=== PATIENT | female | born 1970 | race African-American/Black ===

== ENCOUNTER 2020-10-21 08:39 | Emergency (ER) | payer OTHER, SELFPAY ==
--- NOTE | ~2020-10-21 | XR_ITS ---
EXAMINATION: XR hand LT min 3V DATE: 10/21/2020 09:10 INDICATION: Left thumb and hand pain post injury TECHNIQUE: Posteroanterior, oblique and lateral views of the left hand were obtained. COMPARISON: None. FINDINGS: Bone alignment is normal. There is soft tissue swelling about the left first metacarpophalangeal join t. There is a tiny calcific density with relatively smooth margins along the radial side of the first metacarpophalangeal joint line positioned closer to the base of the proximal phalanx. Mild periartic ular hypertrophic change with associated small cortical erosion with sclerotic margins at the medial aspect of the head of the first metacarpal. Could not exclude a tiny acute avulsion fracture of the m etacarpal footplate of the radial collateral ligament however appearance is more suggestive of sequel a of chronic injury either of an avulsion fracture or ligament sprain with secondary heterotopic ossi fication and erosive change. Differential would include erosion in the setting of gout. No other lesi ons suspicious for fracture. Joint spaces are normal. IMPRESSION: 1. Soft tissue swelling about the left first metacarpophalangeal joint with findings suspicious for i njury either acute or chronic of the radial collateral ligament as detailed above. Reviewed, dictated and finalized at location B. TEACHER IMPRESSION: 1. Soft tissue swelling about the left first metacarpophalangeal joint with fin dings suspicious for injury either acute or chronic of the radial collateral li gament as detailed above.
[2020-10-21 08:52] VITALS: BP 159/79; PULSE 62; RESP 16; TEMP 35.7; O2SAT 100
--- NOTE | 2020-10-21 09:29 | ED.UPPEXIN ---
HPI - Extremity Injury (Upper) General Chief Complaint: Extremity Injury, Upper <MARCELA Her Last Filed: 10/21/20 09:41> Stated Complaint: left thumb injury <MARCELA Her Last Filed: 10/21/20 09:41> Time Seen by Provider: 10/21/20 09:06 <MARCELA Her Last Filed: 10/21/20 09:41> Source: patient <MARCELA Her Last Filed: 10/21/20 09:41> Mode of arrival: ambulatory <MARCELA Her Last Filed: 10/21/20 09:41> Limitations: no limitations <MARCELA Her Last Filed: 10/21/20 09:41> History of Present Illness HPI narrative: This is a 50 year old ebvvy-ihpw-upxgieam female that presents to the ER for left first finger injury sustained 2 days ago. Reports she had to help a resident up off of the floor into a wheelchair. Reports she noted after that that she had some swelling and pain in the left first finger. Reports decreased range of motion due to pain. Denies numbness. <MARCELA Her Last Filed: 10/21/20 09:41> Related Data Home Medications: Home Medications Medication Instructions Recorded Confirmed No Home Medications 10/21/20 10/21/20 <MARCELA Her Last Filed: 10/21/20 09:41> Allergies/Adverse Reactions: Allergies Allergy/AdvReac Type Severity Reaction Status Date / Time No Known Allergies Allergy Other Uncoded 10/21/20 08:59 <MARCELA Her Last Filed: 10/21/20 09:41> Review of Systems Review of Systems: Narrative: CONSTITUTIONAL: Denies fever MUSCULOSKELETAL: Reports joint pain, and myalgia. NEUROLOGIC: Denies numbness <MARCELA Her Last Filed: 10/21/20 09:41> All systems reviewed & are unremarkable except as noted in HPI and below <MARCELA Her Last Filed: 10/21/20 09:41> PMFSH Family History Family History: Family History (Updated 04/22/18 @ 11:20 by DOCTOR UNKNOWN) Mother Patient's mother is <MARCELA Her Last Filed: 10/21/20 09:41> Social History Social History: Social History Smoking status: Never smoker Alcohol intake: never <MARCELA Her Last Filed: 10/21/20 09:41> Exam Narrative: Exam Narrative: GENERAL: Well-appearing, well-nourished, and in no acute distress. HEAD: Normocephalic, atraumatic. EYES: EOMI. EXTREMITIES: Decreased active ROM in the left first finger due to pain. Mild edema in the area of the left first MCP joint, patient tender to palpation. Normal radial pulses. Normal sensation SKIN: Warm, dry, no rash. NEURO: No focal deficits. Alert and oriented x3. PSYCH: Normal mood and affect <MARCELA Her Last Filed: 10/21/20 09:41> Course Consultations Consultation #1: Spoke with Dr. Mckinnon about patient work-up. Patient will be placed in a long metal foam finger splint and is to follow-up in clinic <Maria Teresa Sparks PA-C - Last Filed: 10/21/20 09:41> Date: 10/21/20 <MARCELA Her Last Filed: 10/21/20 09:41> Time: 09:38 <MARCELA Her Last Filed: 10/21/20 09:41> Vital Signs Vital signs: Vital Signs Temperature 96.3 F L 10/21/20 08:52 Pulse Rate 62 10/21/20 08:52 Respiratory Rate 16 10/21/20 08:52 Blood Pressure 159/79 H 10/21/20 08:52 Pulse Oximetry 100 10/21/20 08:52 Temperature 96.3 F L 10/21/20 08:52 Pulse Rate 62 10/21/20 08:52 Respiratory Rate 16 10/21/20 08:52 Blood Pressure 159/79 H 10/21/20 08:52 Pulse Oximetry 100 10/21/20 08:52 <MARCELA Her Last Filed: 10/21/20 09:41> Vital Signs Temperature 96.3 F L 10/21/20 08:52 Pulse Rate 62 10/21/20 08:52 Respiratory Rate 16 10/21/20 08:52 Blood Pressure 159/79 H 10/21/20 08:52 Pulse Oximetry 100 10/21/20 08:52 Temperature 96.3 F L 10/21/20 08:52 Pulse Rate 62 10/21/20 08:52 Respiratory Rate 16 10/21/20 08:52 Blood Pressure 159/79 H 10/21/20 08:52
[2020-10-21] MEDS: IBUPROFEN 600 MG TABLET PO (10:14)
== END 2020-10-21 10:20 | disposition home or self-care (01) ==
PROVIDERS: Emergency Provider General Practice; PCP Emergency Medicine
DX: S63.642A Sprain of metacarpophalangeal joint of left thumb, initial encounter (principal); X50.0XXA Overexertion from strenuous movement or load, initial encounter; Y93.F2 Activity, caregiving, lifting
CPT/HCPCS: 29130; 73130; 99283; A9270

== ENCOUNTER 2020-12-25 13:30 | Outpatient (RCR) | payer OTHER, SELFPAY ==
--- NOTE | 2020-11-13 14:34 | OTOPEVAL ---
OCCUPATIONAL THERAPY INITIAL EVALUATION 11/13/20 Roseanne is a 50 year-old, right handed female who sustained a left thumb MCP radial collateral ligament strain ~3.5 weeks ago. She continues to have a moderate amount of pain with use and with ligament stress indicating need for further time immobilized. A short opponens splint was fitted for the patient to be positioned in palmar abduction with the IP free and with the MCP joint immobilized. She understands to wear this when working and using her hand. We will continue to monitor this weekly with the goal of discharging the splint by week 6 post injury (11/30/20). Will plan to see the patient 1x/week for 4 weeks for use of modalities for pain and stiffness and ROM. Thank you for referring Roseanne Roque to [facility] [place].? The patient is scheduled to be seen for therapy? 1x/week for 4 weeks. Please review, sign, date and return this plan of care MITCHELL. I agree with and certify that the following plan of care is medically necessary. Referring Physician Date Referring Provider: Oliver Mckinnon MD *OT Outpatient Evaluation Start: 11/13/20 13:08 Freq: Status: Active Protocol: Document 11/13/20 13:08 BRIAN (Rec: 11/13/20 14:32 BRIAN [email or web address]) Therapy Assessment Status Assessment Status Assessment Status Evaluation Outpatient Past Medical History Past Medical History Source of Past Medical History Recalled from Previous Visit, Confirmed with Patient/Family Neurological History Hx Neurological Disorders No Significant History Cardiovascular History Hx Cardiac Disorders No Significant History Respiratory History Hx Respiratory Disorders No Significant History Gastrointestinal History Hx Gastrointestinal Disorders No Significant History Genitourinary History Hx Genitourinary Disorders No Significant History Musculoskeletal History Hx Musculoskeletal Disorders No Significant History Hematological History Hx Hematological Disorders No Significant History Endocrine History Hx Endocrine Disorders No Significant History HEENT History Hx Glaucoma Yes: NONCOMPLIANT WITH MED Integumentary History Hx Skin Disorders No Significant History Reproductive History Hx Reproductive Disorders No Significant History Psychosocial History Hx Psychiatric Disorders No Significant History Pain History History of Any Previous or Ongoing No Significant History Instance of Pain Anesthesia History Hx Anesthesia Reactions No Significant History Evaluation Information Problem Diagnosis Sprain left thumb MP joint radial collateral ligament sprain Onset 10/19/20 Subjective Information Patient states she has a thumb Query Text:As Reported By Patient/ immobilizer that covers the Family MP and IP joints of the thumb. She states she had not been
--- NOTE | 2020-12-11 13:20 | OTOPEVAL ---
OCCUPATIONAL THERAPY RE-EVALUATION REPORT 12/11/20 Patient presents today for re-evaluation following 4 weeks of OT. Today she has no pain at rest and no pain with active/passive ROM. Reports increased pain to 1-2/10 with gross gripping and pinching tasks. Due to residual pain, it is recommended that she continue to limit strenuous gripping, lifting, and pinching with the left hand x2 additional weeks. Will plan to reassess in 2 weeks to initiate director cloud transformation/pinch strengthening as long as patient's pain has subsided in the radial aspect of the MCP. Thank you for referring Roseanne Roque to [facility].? The patient is scheduled to be seen for therapy? 0-1x/week for 2 weeks. Please review, sign, date and return this plan of care MITCHELL. I agree with and certify that the following plan of care is medically necessary. Referring Physician Date Referring Provider: Oliver Mckinnon MD *OT Outpatient Evaluation Start: 11/13/20 13:08 Evaluation Information Problem Diagnosis Sprain left thumb MP joint radial collateral ligament sprain Onset 10/19/20 Additional Evaluation Detail Patient is 8 weeks s/p radial collateral ligament sprain. She had been wearing a hand- based thumb spica x3 weeks and prior to that she intermittently wore a long thumb spica that also immobilized the IP - questionable compliance with wear time as this splint she said was too uncomfortable. At this time she continues to have pain with gross gripping and pinching tasks that require any resistance/force. It is recommended that she continue to be on light duty and work and continue to not put any strenuous force through the thumb for an additional 2 weeks. Subjective Information Patient states since beginning Query Text:As Reported By Patient/ therapy 4 weeks ago the Family patient has significantly less pain in the left thumb. At the start of care she had 5/10 sharp pain with ROM and today she has 0/10 pain with ROM. Only reports pain with any gripping/pinching and this pain only reaches 1/10. Pain Assessment Timing of Pain Assessment Timing of Pain Assessment Re-assessment Pain Scale Pain Scal
--- NOTE | 2020-12-25 14:05 | OTOPEVAL ---
OCCUPATIONAL THERAPY RE-EVALUATION AND DISCHARGE REPORT 12/25/20 Patient presents today for her final therapy re-evaluation 10 weeks s/p left thumb radial collateral ligament injury. 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 She has been instructed in barge master/pinch strengthening HEP and is ready for discharge. Recommended that she is able to return to work without restrictions. D/C today with goals met. Thank you for referring Roseanne Roque to [facility].?Please review, sign, date and return this D/C Note MITCHELL. I agree with and certify that the following plan of care is medically necessary. Referring Physician Date Referring Provider: Oliver Mckinnon MD *OT Outpatient Evaluation Therapy Assessment Status Assessment Status Assessment Status Re-evaluation Evaluation Information Problem Diagnosis Sprain left thumb MP joint radial collateral ligament sprain Onset 10/19/20 Additional Evaluation Detail Patient is 10 weeks s/p radial collateral ligament sprain At this time she no longer has pain with gripping and pinching tasks. Subjective Information Patient states she has Query Text:As Reported By Patient/ returned to normal functional Family and pain-free use of the left hand. At the start of care she had 5/10 sharp pain with ROM and today she has 0/10 pain with ROM and with barge master/ pinch strength assessments. Pain Assessment Timing of Pain Assessment Timing of Pain Assessment Assessment Pain Scale Pain Scale Used Numeric (1 - 10) Self Report Pain Assessment Left Thumb(s) Reported Pain Level 0 Lowest Pain Intensity 0 Greatest Pain Intensity 0 Pain Score Pain Score 0: Self Report Upper Extremity Range of Motion Thumb Range of Motion Left Thumb MCP Flexion - Active 50 Thumb IP Flexion - Active 85 Thumb CMC Radial Abduction - Active 55 Thumb CMC Palmar Abduction - Active 50 Thumb Range of Motion Comments AROM returned to normal limits . MCP flexion improved from 30 *, IP flexion improved from 60 *, and opposition improved from having a 2cm gap. No pain with active ROM. Hand Manager Non Profit/Pinch Strength Assessment Hand Left Manager Non Profit Strength (lbs) 49.33 Lateral Pinch Strength (lbs) 8.66 Palmar Pinch Strength (lbs) 4 Hand Manager Non Profit/Pinch Strength Comments No pain with barge master/pinch testing.
== END 2020-12-27 10:42 | disposition home or self-care (01) ==
LOC: ANHOT 13:30
PROVIDERS: PCP Emergency Medicine; Visit Provider Plastic Surgery
DX: S63.682D Other sprain of left thumb, subsequent encounter (principal)
CPT/HCPCS: 97018; 97110; 97140; 97165; 97763; L3919

== ENCOUNTER 2021-01-08 09:34 | Outpatient (CLI) | payer OTHER, SELFPAY ==
[2021-01-08 09:56] LABS: Basophils Percent Auto 0.4 % (0.2-1.2); Eosinophils Absolute Auto 0.1 K/mm3 (0-0.3); Eosinophils Percent Auto 1.4 % (0-4.4); Hematocrit 38.8 % (37.0-47.0); Hemoglobin 12.6 g/dL (12.0-15.0); Immature Granulocyte Absolute 0.01 K/mm3 (0.00-0.031); Immature Granulocyte Percent A 0.2 % (0-0.5); Lymphocytes Absolute Auto 2.56 K/mm3 (0.9-3.2); Lymphocytes Percent Auto 51.9 % (18.3-44.2); Mean Corpuscular HGB Conc 32.5 g/dl (32-36); Mean Corpuscular Hemoglobin 31.6 pg (26-34); Mean Corpuscular Volume 97.2 fl (80-100); Mean Platelet Volume 9.2 fl (7.4-10.4); Monocytes Absolute Auto 0.4 K/mm3 (0.1-0.6); Monocytes Percent Auto 8.5 % (2.6-8.5); Neutrophils Absolute Auto 1.9 K/mm3 (1.3-6.7); Neutrophils Percent Auto 37.6 % (45.5-73.1); Platelet Count Result 198 k/mm3 (150-375); Red Blood Count 3.99 M/mm3 (4.2-5.4); Red Cell Distribution Width 13.9 % (11.5-14.5); White Blood Count 4.9 K/mm3 (4.5-10.0)
[2021-01-10 15:22] LABS: Hepatitis B DNA PCR <1.00 Log IU/mL; Hepatitis B DNA PCR <10 IU/mL
[2021-01-11 20:51] LABS: NIL 0.04 IU/mL; Quantiferon TB Plus, 1T NEGATIVE (NEGATIVE); TB1-NIL <0.00 IU/mL; TB2-NIL <0.00 IU/mL
== END 2021-01-08 09:35 | disposition home or self-care (01) ==
PROVIDERS: PCP Emergency Medicine; Visit Provider Emergency Medicine
DX: Z11.1 Encounter for screening for respiratory tuberculosis (principal); Z11.59 Encounter for screening for other viral diseases; R53.83 Other fatigue
CPT/HCPCS: 36415; 84443; 85025; 86480; 87517

== ENCOUNTER 2021-01-25 13:13 | Outpatient (CLI) | payer OTHER, SELFPAY ==
[2021-01-25 15:23] LABS: Hepatitis B Surface Anti Res Positive
== END 2021-01-25 13:14 | disposition home or self-care (01) ==
PROVIDERS: PCP Emergency Medicine; Visit Provider Emergency Medicine
DX: Z11.59 Encounter for screening for other viral diseases (principal)
CPT/HCPCS: 36415; 86706

== ENCOUNTER 2021-03-29 21:37 | Emergency (ER) | payer OTHER, SELFPAY ==
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
[2021-03-29 21:54] VITALS: BP 136/79; PULSE 64; RESP 18; TEMP 36.9; O2SAT 100
[2021-03-30 00:38] VITALS: BP 128/84; PULSE 61; RESP 18; TEMP 36.8; O2SAT 100
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
--- NOTE | 2021-03-30 01:31 | ECG_ITS ---
Measurements Intervals [place] Rate: 45 P: 65 [place]: 220 QRS: 74 QRSD: 91 T: 50 QT: 457 QTc: 398 Interpretive Statements SINUS BRADYCARDIA WITH FIRST DEGREE AV BLOCK VOLTAGE CRITERIA FOR LVH BASELINE ARTIFACT- I, II, III ABNORMAL ECG Electronically Signed On 03-30-2021 7:06:01 CDT by Kedar Persaud D.O.
[2021-03-30] MEDS: ACETAMINOPHEN 500 MG TABLET 1000 MG PO (01:41)
--- NOTE | 2021-03-30 01:46 | PC.NURSE ---
Patient taken to xray.
[2021-03-30 03:46] VITALS: BP 121/66; PULSE 66; RESP 18; TEMP 36.3; O2SAT 100
== END 2021-03-30 03:48 | disposition home or self-care (01) ==
PROVIDERS: Emergency Provider Emergency Medicine; PCP Emergency Medicine
DX: R07.89 Other chest pain (principal); R00.1 Bradycardia, unspecified; R94.31 Abnormal electrocardiogram [ECG] [EKG]; V47.0XXA Car driver injured in collision with fixed or stationary object in nontraffic accident, initial encounter
CPT/HCPCS: 71046; 93005; 99283; A9270

== ENCOUNTER → 2021-05-17 00:04 | Outpatient (CLI) | payer OTHER, SELFPAY ==
[2021-05-17 18:04] LABS: SARS-CoV-2 RNA PCR Negative
== END ==
PROVIDERS: PCP Emergency Medicine; Visit Provider Emergency Medicine
DX: R68.89 Other general symptoms and signs (principal); Z20.822 Contact with and (suspected) exposure to COVID-19
CPT/HCPCS: C9803; U0003; U0005

== ENCOUNTER → 2021-05-24 00:35 | Outpatient (CLI) | payer OTHER, SELFPAY ==
[2021-05-24 19:34] LABS: SARS-CoV-2 RNA PCR Negative
== END ==
PROVIDERS: PCP Emergency Medicine; Visit Provider Emergency Medicine
DX: R68.89 Other general symptoms and signs (principal); Z20.822 Contact with and (suspected) exposure to COVID-19
CPT/HCPCS: C9803; U0003; U0005

== ENCOUNTER 2022-01-24 08:08 | Outpatient (CLI) | payer OTHER, SELFPAY ==
[2022-01-24 08:39] LABS: Alanine Aminotransferase 18 U/L (6-35); Albumin Level 4.2 g/dL (3.5-5.1); Alkaline Phosphatase 65 U/L (38-126); Anion Gap 3 mmol/L (8-16); Aspartate Amino Transferase 29 U/L (14-36); Bilirubin,Total 0.6 mg/dL (0.2-1.3); Blood Urea Nitrogen 13 mg/dL (7-17); Calcium 9.2 mg/dL (8.4-10.2); Carbon Dioxide 28 mmol/L (22-30); Chloride 106 mmol/L (98-107); Cholesterol 220 mg/dL (0-200); Estimated Glomerular Filt Rate > 60; Glucose 83 mg/dL (65-110); HDL Direct 77 mg/dL; Potassium 3.9 mmol/L (3.4-5.0); Sodium 137 mmol/L (137-145); Triglycerides 35 mg/dL (<150)
[2022-01-24 08:50] LABS: LDL Cholesterol Direct 91 mg/dL
[2022-01-27 13:46] LABS: NIL 0.05 IU/mL; Quantiferon TB Plus, 1T NEGATIVE (NEGATIVE); TB1-NIL 0.01 IU/mL; TB2-NIL 0.01 IU/mL
[2022-01-29 16:07] LABS: Vitamin D 1,25 (OH)2 Total 34 pg/mL (18-72); Vitamin D2 1,25 (OH)2 <8 pg/mL; Vitamin D3 1,25 (OH)2 34 pg/mL
== END 2022-01-24 08:09 | disposition home or self-care (01) ==
LOC: ANHLAB 08:09
PROVIDERS: PCP Emergency Medicine; Visit Provider Emergency Medicine
DX: E55.9 Vitamin D deficiency, unspecified (principal); Z13.6 Encounter for screening for cardiovascular disorders; Z13.89 Encounter for screening for other disorder; Z11.1 Encounter for screening for respiratory tuberculosis
CPT/HCPCS: 36415; 80053; 80061; 82652; 86480

== ENCOUNTER 2022-12-29 07:00 | Outpatient (CLI) | payer OTHER, SELFPAY ==
[2022-12-29 08:02] LABS: Alanine Aminotransferase 18 U/L (6-35); Albumin Level 4.2 g/dL (3.5-5.1); Alkaline Phosphatase 60 U/L (38-126); Anion Gap 8 mmol/L (8-16); Aspartate Amino Transferase 22 U/L (14-36); Bilirubin,Total 0.3 mg/dL (0.2-1.3); Blood Urea Nitrogen 17 mg/dL (7-17); Calcium 9.1 mg/dL (8.4-10.2); Carbon Dioxide 26 mmol/L (22-30); Chloride 105 mmol/L (98-107); Cholesterol 180 mg/dL (0-200); Estimated Glomerular Filt Rate > 60; Glucose 78 mg/dL (65-110); HDL Direct 63 mg/dL; Potassium 3.8 mmol/L (3.4-5.0); Sodium 139 mmol/L (137-145); Triglycerides 52 mg/dL (<150)
[2022-12-29 08:15] LABS: LDL Cholesterol Direct 86 mg/dL
[2022-12-29 09:02] LABS: Hepatitis B Surface Anti Res Positive
[2023-01-01 12:09] LABS: NIL 0.05 IU/mL; Quantiferon TB Plus, 1T NEGATIVE (NEGATIVE); TB1-NIL 0.01 IU/mL; TB2-NIL 0.02 IU/mL
[2023-01-02 14:37] LABS: Vitamin D 1,25 (OH)2 Total 36 pg/mL (18-72); Vitamin D2 1,25 (OH)2 <8 pg/mL; Vitamin D3 1,25 (OH)2 36 pg/mL
== END 2022-12-29 07:01 | disposition home or self-care (01) ==
LOC: ANHLAB 07:01
PROVIDERS: PCP Emergency Medicine; Visit Provider Emergency Medicine
DX: Z11.8 Encounter for screening for other infectious and parasitic diseases (principal); Z11.59 Encounter for screening for other viral diseases; Z13.220 Encounter for screening for lipoid disorders; E55.9 Vitamin D deficiency, unspecified; F41.9 Anxiety disorder, unspecified; Z11.1 Encounter for screening for respiratory tuberculosis
CPT/HCPCS: 36415; 80053; 80061; 82652; 86480; 86706

== ENCOUNTER 2023-07-27 14:04 | Outpatient (CLI) | payer OTHER, SELFPAY ==
--- NOTE | ~2023-07-27 | MM_ITS ---
EXAMINATION: MM screening claire BI w eduardo HISTORY: Screening mammogram TECHNIQUE: Craniocaudal and mediolateral oblique 3-D tomosynthesis images were obtained and synthetic 2-D images were generated. CAD analysis was submitted and interpreted. COMPARISON: 04/20/2019 BREAST PARENCHYMAL COMPOSITION: The breasts are heterogeneously dense, which may obscure small masses . FINDINGS: No suspicious mass, calcification, or architectural distortion are identified in either charles ast to suggest malignancy. There has been no suspicious interval change. IMPRESSION: 1. No mammographic evidence of malignancy. 2. Recommend routine screening mammography in one year. BI-RADS Category 1: Negative Reviewed, dictated and finalized at location A. 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
== END 2023-07-27 14:05 | disposition home or self-care (01) ==
PROVIDERS: PCP Emergency Medicine; Visit Provider Emergency Medicine
DX: Z12.31 Encounter for screening mammogram for malignant neoplasm of breast (principal)
CPT/HCPCS: 77063; 77067

== ENCOUNTER 2023-12-27 15:56 | Outpatient (CLI) | payer OTHER, SELFPAY ==
[2023-12-30 12:19] LABS: NIL 0.03 IU/mL; Quantiferon TB Plus, 1T NEGATIVE (NEGATIVE); TB1-NIL 0.02 IU/mL; TB2-NIL 0.01 IU/mL
== END 2023-12-27 15:57 | disposition home or self-care (01) ==
LOC: ANHLAB 15:57
PROVIDERS: PCP Emergency Medicine; Visit Provider Emergency Medicine
DX: Z11.1 Encounter for screening for respiratory tuberculosis (principal)
CPT/HCPCS: 36415; 86480

== ENCOUNTER 2024-07-07 08:38 | Outpatient (CLI) | payer OTHER, SELFPAY ==
[2024-07-07 09:16] LABS: Alanine Aminotransferase 28 U/L (6-35); Albumin Level 4.1 g/dL (3.5-5.1); Alkaline Phosphatase 59 U/L (38-126); Anion Gap 4 mmol/L (4-12); Aspartate Amino Transferase 32 U/L (14-36); Bilirubin,Total 0.4 mg/dL (0.2-1.3); Blood Urea Nitrogen 18 mg/dL (7-17); Calcium 9.5 mg/dL (8.4-10.2); Carbon Dioxide 28 mmol/L (22-30); Chloride 107 mmol/L (98-107); Cholesterol 192 mg/dL (0-200); Estimated Glomerular Filt Rate > 60; Glucose 87 mg/dL (65-110); HDL Direct 88 mg/dL; Potassium 4.1 mmol/L (3.4-5.0); Sodium 139 mmol/L (137-145); Triglycerides 43 mg/dL (<150)
[2024-07-07 09:27] LABS: LDL Cholesterol Direct 71 mg/dL
[2024-07-07 09:38] LABS: Vitamin D 25 Hydroxy 44.8 ng/mL
[2024-07-07 10:12] LABS: Hepatitis B Surface Anti Res Positive
[2024-07-12 14:24] LABS: NIL 0.05 IU/mL; Quantiferon TB Plus, 1T NEGATIVE (NEGATIVE); TB1-NIL 0.03 IU/mL; TB2-NIL 0.02 IU/mL
== END 2024-07-07 08:39 | disposition home or self-care (01) ==
LOC: ANHLAB 08:39
PROVIDERS: PCP Emergency Medicine; Visit Provider Emergency Medicine
DX: Z11.1 Encounter for screening for respiratory tuberculosis (principal); Z11.8 Encounter for screening for other infectious and parasitic diseases; Z11.59 Encounter for screening for other viral diseases; E78.5 Hyperlipidemia, unspecified; E55.9 Vitamin D deficiency, unspecified
CPT/HCPCS: 36415; 80053; 80061; 82306; 86480; 86706